=== PATIENT | female | born 1975 | race Caucasian/White ===

== ENCOUNTER 2017-08-20 11:05 | Emergency (ER) | payer OTHER ==
[~2017-08-20] VITALS: Ht 177.8 cm; Wt 98.6 kg
[~2017-08-20 11:05] MED LIST: EFFEXOR XR75 MG/CAP PO; KLONOPIN 0.5MG0.5 MG PO; PRISTIQ 50 MG T50 MG PO; VITAMIN D31000 I1 PO
[2017-08-20 11:17] VITALS: BP 134/99; PULSE 92; TEMP 98.6
== END 2017-08-20 11:52 | disposition left against medical advice (07) ==
LOC: COL.ER 11:05
DX: S61.012A Laceration without foreign body of left thumb without damage to nail, initial encounter (principal)